=== PATIENT | male | born 1985 | race African-American/Black ===

== ENCOUNTER 2018-10-28 10:05 | Inpatient (IN) | payer MEDICAID ==
[2018-10-28] MEDS ORDERED: Acetaminophen TAB* 325 MG PO PRN (13:16)
[2018-10-28] MEDS ORDERED: Senna TAB PO PRN (13:16)
[2018-10-28] MEDS ORDERED: oxyCODONE TAB* 5 MG TAB PO PRN (13:29)
[2018-10-28] MEDS ORDERED: Magnesium Hydroxide LIQ* 30 ML UDC PO PRN (13:35)
[2018-10-28] MEDS: oxyCODONE/Acetamin 5/325 MG* TAB PO PRN (14:20)
[2018-10-28] MEDS: Gabapentin CAP(*) 300 MG PO SCH ×2 (14:20→21:02)
[2018-10-28] MEDS: Clindamycin CAP* 150 MG PO SCH ×2 (14:20→22:12)
[2018-10-28] MEDS: oxyCODONE SR TAB(*) 10 MG TAB.SR PO SCH (17:57)
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
[2018-10-28] MEDS: Docusate CAP* 100 MG PO SCH (21:03)
[2018-10-28] MEDS: Enoxaparin(*) 30 MG/0.3 ML SYR SUBCUT SCH (21:03)
[2018-10-28] MEDS: Melatonin 3 MG TAB PO PRN (22:12)
[2018-10-29] MEDS: Clindamycin CAP* 150 MG PO SCH ×3 (04:56→21:50)
[2018-10-29] MEDS: oxyCODONE SR TAB(*) 10 MG TAB.SR PO SCH ×2 (04:56→17:24)
[2018-10-29 05:14] LABS: ABS Eosinophils 0.3 10^3/ul (0-0.6); ABS Lymphocytes 1.5 10^3/ul (1.0-4.8); ABS Monocytes 0.6 10^3/ul (0-0.8); ABS Neutrophils 5.8 10^3/ul (1.5-7.7); Eosinophil % 3.6 %; Hematocrit 36 % (42-52); Hemoglobin 11.5 g/dL (14.0-18.0); Lymphocyte % 18.6 %; Mean Corpuscular HGB Conc 33 g/dL (31-36); Mean Corpuscular Hemoglobin 26 pg (27-31); Mean Corpuscular Volume 79 fL (80-94); Mean Platelet Volume 7.5 fL (7.4-10.4); Platelet Count 255 10^3/uL (150-450); Red Cell Distribution Width 13 % (10.5-15); White Blood Count 8.3 10^3/uL (3.5-10.8)
[2018-10-29 05:20] LABS: Albumin 3.8 g/dL (3.2-5.2); Albumin/Globulin Ratio 1.3 (1-3); Calcium 9.4 mg/dL (8.6-10.3); EGFR Non-African American 121.5 (>60); Globulin 2.9 g/dL (2-4); Total Bilirubin 0.8 mg/dL (0.2-1.0); Total Protein 6.7 g/dL (6.4-8.9)
[2018-10-29] MEDS: oxyCODONE/Acetamin 5/325 MG* TAB PO PRN ×2 (07:47→21:52)
[2018-10-29] MEDS: Docusate CAP* 100 MG PO SCH ×2 (07:48→21:48)
[2018-10-29] MEDS: Gabapentin CAP(*) 300 MG PO SCH ×3 (07:48→21:50)
[2018-10-29] MEDS: Enoxaparin(*) 30 MG/0.3 ML SYR SUBCUT SCH ×2 (07:48→21:49)
[2018-10-29 09:00] LABS: Troponin I 0.01 ng/mL (<0.04)
[2018-10-29] MEDS ORDERED: OXYMETAZOLINE 0.05% BOTH NARES SCH (09:00)
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
[2018-10-29] MEDS: Bacitracin OINTMENT* 0.5% 0.5 oz TUBE TOPICAL SCH (09:32)
[2018-10-29] MEDS: Oxymetazoline 0.05% NASAL SPR* 15 ML BTL BOTH NARES SCH ×3 (09:35→21:53)
[2018-10-29] MEDS ORDERED: Iohexol 350* (CONTRAST) 500 ML MDV IV ONE (09:53)
[2018-10-29] MEDS ORDERED: NS 0.9% 250 ML* 250 ML IV ONE (12:04)
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
--- NOTE | 2018-10-29 12:33 | PMRUTEAM ---
PMRU: Team Meeting Current Status: Nursing: Current Status Skin Deviations [lindsey arms, Abrasion face] Skin Deviations [Left Ankle] Incision Skin Deviation Description [ healing, scabbed lindsey arms, face] Skin Deviation Description [ oralia wrapped splint CDI Left Ankle] Physical Therapy: Current Status Bed Mobility Assistance Independent with trapeze Transfer Mobility Assistance Min - mod assist with slide board Ambulation Assistance Not tested Occupational Therapy: Current Status Upper Body Dressing Supervision Lower Body Dressing Max Asst Bathing Min Assist Toileting Mod Assist,Max Asst Shower Transfer Contact Guard Assist Eating Independent Rec Therapy: Current Status Summary of Assessment and Pt. was open to conversation - tired, but polite Clinical Impression and engaged, making jokes throughout. Pt. was able to identify numerous leisure interests and requested coloring designs and/or word scrambles for use during free time. Pt. was excited about recreation therapy sessions, stating that [facility] is "way more fun than the last place I was at". Pt. also expressed interest in pet therapy when his nose is in better shape (pt. has dander allergies and does not want to risk the possibility of sneezing). Treatment Goals Pt. will engage in leisure while on the unit. Treatment Plan Provide recreation services. Social Work: Current Status Discharge Plan return home with home care svs and family support Potential for Family Training pt's fiance is attentive and involved Anticipated Discharge Home Destination Discharge With home care svs and family support Goals: PHYSICAL THERAPY: INITIAL GOALS Independent bed mobility, transfers with slide board and manual wheelchair propulsion 150ft. Occupational Therapy: Initial Goals Goals to be Completed in (Days 7-10 ) Upper Body Bathing Routine Independent Lower Body Bathing Routine Modified Independent with Upper Body Dressing Routine Independent Lower Body Dressing Routine Modified Independent with Toilet Hygeine and Clothing Modified Independent with Management Routine Toilet Transfer Routine Modified Independent with Tub Transfer Routine Modified Independent with Tub Trasnfer Assistive Devices tub transfer bench Functional Transfers for ADL Modified Independent with Functional Transfers for ADl transfer board Assistive Devices Grooming Routine Modified Independent with Feeding Routine Independent Social Work: Goals Discharge Plan return home with home care svs and family support Potential for Family Training pt's fiance is attentive and involved Anticipated Discharge Home Destination Discharge With home care svs and family support Care Plan: Care Plan DVT Prophylaxis- Improve/Maintain Start: 10/28/18 19:48 Freq: QSHIFT Status: Active Target: Protocol: Activity Type Activity Date Activity User E-Sign Co-Sign Detail Recorded Client Recorded Date Recorded By Document 10/29/18 08:00 [id number] 10/29/18 08:10 [id number] 10/29/18 08:00 [facility] Outcome: DVT Prophylaxis Outcome/Goals Remains Free of DVT Progression Toward Outcome/Goals Progressing Education-Improve/Maintain Start: 10/28/18 19:48 Freq: QSHIFT Status: Active Target: Protocol: Activity Type Activity Date Activity User E-Sign Co-Sign Detail Recorded Client Recorded Date Recorded By Document 10/29/18 08:00 [id number] 10/29/18 08:10 [id number] 10/29/18 08:00 PMRU Outcome: Education Outcome/Goals Demonstrate/ Verbalize Understanding of Written Discharge Instructions Encourage Questions Progression Toward Outcome/Goals Progressing Pain/Comfort- Improve/Maintain Start: 10/28/18 19:48 Freq: QSHIFT Status: Active Target: Protocol: Activity Type Activity Date Activity User E-Sign Co-Sign Detail Recorded Client Recorded Date Recorded By Document 10/29/18 08:00 [id number] 10/29/18 08:10 [id number] 10/29/18 08:00 PMRU Outcome: Pain/Comfort Outcome/Goals Demonstrates Knowledge and Use of Available Comfort Measures Achieves Acceptable Comfort/Pain Level as Determined by Patient/Condit Maintain Comfort Level Allowing Patient to Fully Participate in Rehab Progression Toward Outcome/Goals Progressing Respiratory - Improve/Maintain Start: 10/28/18 19:48 Freq: QSHIFT Status: Active Target: Protocol: Activity Type Activity Date Activity User E-Sign Co-Sign Detail Recorded Client Recorded Date Recorded By Document 10/29/18 08:00 [id number] 10/29/18 08:10 [id number] 10/29/18 08:00 PM[facility] Outcome: Respiratory Does Patient Have a Trach No Outcome/Goals Maintain/ Improve Baseline Respiratory Status Maintain/ Improve Activity Tolerance Prevent Pneumonia/ Atelectasis Progression Toward Outcome/Goals Progressing Safety- Improve/Maintain Start: 10/28/18 19:48 Freq: QSHIFT Status: Active Target: Protocol: Activity Type Activity Date Activity User E-Sign Co-Sign Detail Recorded Client Recorded Date Recorded By Document 10/29/18 08:00 [id number] 10/29/18 08:10 [id number] 10/29/18 08:00 PMRU Outcome: Safety Outcome/Goals Remain Free of Injury or Harm Cooperates with Safety Measures for Least Restrictive Environment Prevent Falls/ Injury Progression Toward Outcome/Goals Progressing Medicine Note: Length of Stay: [11 days] Anticipated Discharge Destination: Home Tentative Discharge Date: [11/09/18] Discharged to: [home with support]
[2018-10-29] MEDS: Methocarbamol TAB* 500 MG PO PRN (17:23)
[2018-10-29] MEDS: NS 0.9% 1000 ML** 1,000 ML IV SCH (20:07)
[2018-10-30] MEDS: Melatonin 3 MG TAB PO PRN ×2 (00:02→21:05)
[2018-10-30] MEDS: oxyCODONE SR TAB(*) 10 MG TAB.SR PO SCH ×2 (06:04→18:36)
[2018-10-30] MEDS: Docusate CAP* 100 MG PO SCH ×2 (09:37→21:00)
[2018-10-30] MEDS: Gabapentin CAP(*) 300 MG PO SCH ×4 (09:38→21:05)
[2018-10-30] MEDS: oxyCODONE/Acetamin 5/325 MG* TAB PO PRN ×3 (09:39→21:10)
[2018-10-30] MEDS: Enoxaparin(*) 30 MG/0.3 ML SYR SUBCUT SCH ×2 (09:40→21:08)
[2018-10-30] MEDS: Oxymetazoline 0.05% NASAL SPR* 15 ML BTL BOTH NARES SCH ×3 (09:43→21:09)
[2018-10-30] MEDS: Bacitracin OINTMENT* 0.5% 0.5 oz TUBE TOPICAL SCH (09:44)
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
[2018-10-30] MEDS: NS 0.9% 1000 ML** 1,000 ML IV SCH ×2 (12:33)
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
[2018-10-31] MEDS: oxyCODONE SR TAB(*) 10 MG TAB.SR PO SCH ×2 (05:53→19:16)
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
[2018-10-31] MEDS ORDERED: Iohexol 350* (CONTRAST) 500 ML MDV IV ONE ×2 (08:31→08:59)
[2018-10-31] MEDS: Gabapentin CAP(*) 300 MG PO SCH ×3 (08:56→21:21)
[2018-10-31] MEDS: Enoxaparin(*) 30 MG/0.3 ML SYR SUBCUT SCH ×2 (08:57→21:18)
[2018-10-31] MEDS: Docusate CAP* 100 MG PO SCH ×2 (09:04→21:35)
[2018-10-31] MEDS: Oxymetazoline 0.05% NASAL SPR* 15 ML BTL BOTH NARES SCH ×3 (09:05→21:23)
[2018-10-31] MEDS: Bacitracin OINTMENT* 0.5% 0.5 oz TUBE TOPICAL SCH (09:05)
[2018-10-31] MEDS: oxyCODONE/Acetamin 5/325 MG* TAB PO PRN ×2 (14:17→21:20)
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
[2018-10-31] MEDS: Melatonin 3 MG TAB PO PRN (21:20)
[2018-11-01] MEDS: oxyCODONE SR TAB(*) 10 MG TAB.SR PO SCH ×2 (04:55→17:57)
[2018-11-01] MEDS: Docusate CAP* 100 MG PO SCH ×2 (08:37→21:47)
[2018-11-01] MEDS: Gabapentin CAP(*) 300 MG PO SCH ×3 (08:39→21:48)
[2018-11-01] MEDS: Enoxaparin(*) 30 MG/0.3 ML SYR SUBCUT SCH ×2 (08:40→21:49)
[2018-11-01] MEDS: oxyCODONE/Acetamin 5/325 MG* TAB PO PRN ×3 (08:40→21:43)
[2018-11-01] MEDS: Oxymetazoline 0.05% NASAL SPR* 15 ML BTL BOTH NARES SCH ×3 (08:42→21:44)
[2018-11-01] MEDS: Bacitracin OINTMENT* 0.5% 0.5 oz TUBE TOPICAL SCH (08:43)
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
[2018-11-01] MEDS: Melatonin 3 MG TAB PO PRN (21:43)
[2018-11-02] MEDS: oxyCODONE SR TAB(*) 10 MG TAB.SR PO SCH ×2 (06:29→18:25)
[2018-11-02] MEDS: Bacitracin OINTMENT* 0.5% 0.5 oz TUBE TOPICAL SCH (08:18)
[2018-11-02] MEDS: Docusate CAP* 100 MG PO SCH ×2 (08:19→21:19)
[2018-11-02] MEDS: Enoxaparin(*) 30 MG/0.3 ML SYR SUBCUT SCH ×2 (08:19→21:19)
[2018-11-02] MEDS: Gabapentin CAP(*) 300 MG PO SCH ×3 (08:21→21:19)
[2018-11-02] MEDS: Oxymetazoline 0.05% NASAL SPR* 15 ML BTL BOTH NARES SCH ×3 (08:25→20:56)
[2018-11-02] MEDS: oxyCODONE/Acetamin 5/325 MG* TAB PO PRN ×2 (08:26→20:53)
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
[2018-11-02] MEDS: Melatonin 3 MG TAB PO PRN (20:54)
[2018-11-02] MEDS: Methocarbamol TAB* 500 MG PO PRN (21:06)
[2018-11-03] MEDS: oxyCODONE SR TAB(*) 10 MG TAB.SR PO SCH ×2 (06:08→16:58)
[2018-11-03] MEDS: Enoxaparin(*) 30 MG/0.3 ML SYR SUBCUT SCH ×2 (09:16→20:26)
[2018-11-03] MEDS: Bacitracin OINTMENT* 0.5% 0.5 oz TUBE TOPICAL SCH (09:16)
[2018-11-03] MEDS: Gabapentin CAP(*) 300 MG PO SCH ×3 (09:17→20:29)
[2018-11-03] MEDS: Oxymetazoline 0.05% NASAL SPR* 15 ML BTL BOTH NARES SCH ×3 (09:18→20:28)
[2018-11-03] MEDS: Docusate CAP* 100 MG PO SCH ×2 (09:18→20:29)
[2018-11-03] MEDS: oxyCODONE/Acetamin 5/325 MG* TAB PO PRN ×3 (09:22→20:29)
[2018-11-03] MEDS: Methocarbamol TAB* 500 MG PO PRN ×2 (11:08→16:59)
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
[2018-11-04] MEDS: oxyCODONE SR TAB(*) 10 MG TAB.SR PO SCH ×2 (05:56→18:03)
[2018-11-04] MEDS: Gabapentin CAP(*) 300 MG PO SCH ×3 (09:32→20:42)
[2018-11-04] MEDS: Enoxaparin(*) 30 MG/0.3 ML SYR SUBCUT SCH ×2 (09:32→20:50)
[2018-11-04] MEDS: Bacitracin OINTMENT* 0.5% 0.5 oz TUBE TOPICAL SCH (09:33)
[2018-11-04] MEDS: oxyCODONE/Acetamin 5/325 MG* TAB PO PRN ×3 (09:36→20:43)
[2018-11-04] MEDS: Docusate CAP* 100 MG PO SCH ×2 (09:37→20:50)
[2018-11-04] MEDS: Methocarbamol TAB* 500 MG PO PRN (15:37)
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
[2018-11-05] MEDS: oxyCODONE SR TAB(*) 10 MG TAB.SR PO SCH ×2 (05:15→18:32)
[2018-11-05 05:27] LABS: ABS Eosinophils 0.3 10^3/ul (0-0.6); ABS Lymphocytes 1.7 10^3/ul (1.0-4.8); ABS Monocytes 0.5 10^3/ul (0-0.8); Eosinophil % 4.8 %; Hematocrit 34 % (42-52); Hemoglobin 11.2 g/dL (14.0-18.0); Lymphocyte % 25.4 %; Mean Corpuscular HGB Conc 33 g/dL (31-36); Mean Corpuscular Hemoglobin 26 pg (27-31); Mean Corpuscular Volume 80 fL (80-94); Mean Platelet Volume 6.9 fL (7.4-10.4); Nucleated Red Blood Cells % 0.1; Platelet Count 521 10^3/uL (150-450); Red Blood Count 4.32 10^6 /uL (4.18-5.48); Red Cell Distribution Width 14 % (10.5-15); White Blood Count 6.5 10^3/uL (3.5-10.8)
[2018-11-05 05:42] LABS: Albumin 4.1 g/dL (3.2-5.2); Albumin/Globulin Ratio 1.5 (1-3); BUN/Creatinine Ratio 24.1 (8-20); Calcium 9.3 mg/dL (8.6-10.3); EGFR African American 130.8 (>60); EGFR Non-African American 108.1 (>60); Globulin 2.8 g/dL (2-4); Potassium 4.3 mmol/L (3.5-5.0); Total Bilirubin 0.4 mg/dL (0.2-1.0); Total Protein 6.9 g/dL (6.4-8.9)
[2018-11-05] MEDS: Enoxaparin(*) 30 MG/0.3 ML SYR SUBCUT SCH ×2 (08:10→21:13)
[2018-11-05] MEDS: Bacitracin OINTMENT* 0.5% 0.5 oz TUBE TOPICAL SCH (08:10)
[2018-11-05] MEDS: Gabapentin CAP(*) 300 MG PO SCH ×3 (08:12→21:13)
[2018-11-05] MEDS: oxyCODONE/Acetamin 5/325 MG* TAB PO PRN ×2 (08:13→21:18)
[2018-11-05] MEDS: Docusate CAP* 100 MG PO SCH ×2 (08:14→21:11)
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
[2018-11-05] MEDS: Methocarbamol TAB* 500 MG PO PRN (18:31)
[2018-11-06] MEDS: oxyCODONE SR TAB(*) 10 MG TAB.SR PO SCH ×3 (06:07→18:40)
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
[2018-11-06] MEDS: Enoxaparin(*) 30 MG/0.3 ML SYR SUBCUT SCH ×2 (08:55→21:56)
[2018-11-06] MEDS: Gabapentin CAP(*) 300 MG PO SCH ×3 (08:56→21:55)
[2018-11-06] MEDS: Docusate CAP* 100 MG PO SCH ×2 (08:57→21:46)
[2018-11-06] MEDS: oxyCODONE/Acetamin 5/325 MG* TAB PO PRN ×3 (08:57→21:56)
[2018-11-06] MEDS: Bacitracin OINTMENT* 0.5% 0.5 oz TUBE TOPICAL SCH (09:05)
[2018-11-07] MEDS: oxyCODONE SR TAB(*) 10 MG TAB.SR PO SCH ×2 (05:42→17:54)
[2018-11-07] MEDS: Gabapentin CAP(*) 300 MG PO SCH ×3 (09:13→21:54)
[2018-11-07] MEDS: oxyCODONE/Acetamin 5/325 MG* TAB PO PRN ×3 (09:15→21:54)
[2018-11-07] MEDS: Enoxaparin(*) 30 MG/0.3 ML SYR SUBCUT SCH ×2 (09:16→21:53)
[2018-11-07] MEDS: Bacitracin OINTMENT* 0.5% 0.5 oz TUBE TOPICAL SCH (09:21)
[2018-11-07] MEDS: Docusate CAP* 100 MG PO SCH ×2 (09:23→21:58)
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
[2018-11-08] MEDS: oxyCODONE/Acetamin 5/325 MG* TAB PO PRN ×3 (04:20→14:05)
[2018-11-08] MEDS: Methocarbamol TAB* 500 MG PO PRN (05:10)
[2018-11-08] MEDS: oxyCODONE SR TAB(*) 10 MG TAB.SR PO SCH ×2 (05:38→17:50)
[2018-11-08] MEDS: Docusate CAP* 100 MG PO SCH ×2 (10:11→21:09)
[2018-11-08] MEDS: Enoxaparin(*) 30 MG/0.3 ML SYR SUBCUT SCH ×2 (10:15→23:09)
[2018-11-08] MEDS: Gabapentin CAP(*) 300 MG PO SCH ×3 (10:15→23:08)
[2018-11-08] MEDS: Bacitracin OINTMENT* 0.5% 0.5 oz TUBE TOPICAL SCH (10:38)
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
[2018-11-09] MEDS: oxyCODONE/Acetamin 5/325 MG* TAB PO PRN ×3 (01:00→15:47)
[2018-11-09] MEDS: Methocarbamol TAB* 500 MG PO PRN (01:02)
[2018-11-09] MEDS: oxyCODONE SR TAB(*) 10 MG TAB.SR PO SCH ×2 (05:55→17:52)
[2018-11-09] MEDS: Bacitracin OINTMENT* 0.5% 0.5 oz TUBE TOPICAL SCH (09:34)
[2018-11-09] MEDS: Gabapentin CAP(*) 300 MG PO SCH ×3 (09:35→21:01)
[2018-11-09] MEDS: Enoxaparin(*) 30 MG/0.3 ML SYR SUBCUT SCH ×2 (09:35→21:03)
[2018-11-09] MEDS: Docusate CAP* 100 MG PO SCH ×2 (09:35→21:07)
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
[2018-11-10] MEDS: oxyCODONE SR TAB(*) 10 MG TAB.SR PO SCH ×2 (06:24→19:14)
[2018-11-10] MEDS: Methocarbamol TAB* 500 MG PO PRN (06:26)
[2018-11-10] MEDS: Bacitracin OINTMENT* 0.5% 0.5 oz TUBE TOPICAL SCH (08:19)
[2018-11-10] MEDS: Docusate CAP* 100 MG PO SCH (08:19)
[2018-11-10] MEDS: Gabapentin CAP(*) 300 MG PO SCH ×2 (08:19→14:27)
[2018-11-10] MEDS: Enoxaparin(*) 30 MG/0.3 ML SYR SUBCUT SCH (08:19)
[2018-11-10] MEDS: oxyCODONE/Acetamin 5/325 MG* TAB PO PRN ×2 (10:21→16:16)
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
[2018-11-10 17:17] VITALS: BP 129/86
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
== END 2018-11-10 19:51 | disposition swing bed (61) | DRG 860 ==
LOC: PMRU 12:28
PROVIDERS: ADMIT Physical Medicine & Rehabilitation; ATTEND Physical Medicine & Rehabilitation
PROC: F07Z5ZZ Bed Mobility Treatment (ICD-10-PCS; principal; 2018-10-28)
PROC: F07Z8ZZ Transfer Training Treatment (ICD-10-PCS; 2018-10-28)
PROC: F07Z4ZZ Wheelchair Mobility Treatment (ICD-10-PCS; 2018-10-28)
PROC: F08Z0ZZ Bathing/Showering Techniques Treatment (ICD-10-PCS; 2018-10-28)
PROC: F08Z1ZZ Dressing Techniques Treatment (ICD-10-PCS; 2018-10-28)
PROC: F08Z3ZZ Feeding/Eating Treatment (ICD-10-PCS; 2018-10-28)
DX: S82.842D Displaced bimalleolar fracture of left lower leg, subsequent encounter for closed fracture with routine healing (principal); S02.2XXD Fracture of nasal bones, subsequent encounter for fracture with routine healing; V49.88XD Car occupant (driver) (passenger) injured in other specified transport accidents, subsequent encounter; S73.004D Unspecified dislocation of right hip, subsequent encounter; F17.210 Nicotine dependence, cigarettes, uncomplicated; R00.0 Tachycardia, unspecified; F32.9 Major depressive disorder, single episode, unspecified; F10.10 Alcohol abuse, uncomplicated; Z88.0 Allergy status to penicillin
CPT/HCPCS: 36415; 80053; 84484; 85025; 85379; 93005; A9270-GY; J1650; Q9967

== ENCOUNTER 2018-11-10 18:08 | Inpatient (IN) | payer MEDICAID ==
[2018-11-10] MEDS ORDERED: Senna TAB PO PRN (20:18)
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
[2018-11-10] MEDS: Gabapentin CAP(*) 300 MG PO SCH (21:55)
[2018-11-10] MEDS: Enoxaparin(*) 40 MG/0.4 ML SYR SUBCUT SCH (22:24)
[2018-11-10] MEDS: oxyCODONE/Acetamin 5/325 MG* TAB PO PRN (22:24)
[2018-11-11] MEDS: Gabapentin CAP(*) 300 MG PO SCH ×3 (07:33→21:38)
[2018-11-11] MEDS: oxyCODONE/Acetamin 5/325 MG* TAB PO PRN ×2 (10:59→19:45)
[2018-11-11] MEDS ORDERED: Morphine INJ* 2 MG/ML 1 ML SYRINGE (TWO MG - NEW SYRINGE VERSION) ONE (11:45)
[2018-11-11] MEDS ORDERED: Morphine INJ* 2 MG/ML 1 ML SYRINGE (TWO MG - NEW SYRINGE VERSION) IV ONE ×2 (12:00→13:00)
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
[2018-11-11] MEDS: Enoxaparin(*) 40 MG/0.4 ML SYR SUBCUT SCH (21:38)
[2018-11-12] MEDS: oxyCODONE/Acetamin 5/325 MG* TAB PO PRN ×3 (06:57→21:54)
[2018-11-12] MEDS: Gabapentin CAP(*) 300 MG PO SCH ×3 (10:00→21:29)
[2018-11-12 14:53] LABS: Hematocrit 37 % (42-52); Hemoglobin 11.8 g/dL (14.0-18.0)
[2018-11-12 15:08] LABS: EGFR African American 125.5 (>60); EGFR Non-African American 103.7 (>60)
[2018-11-12] MEDS: Enoxaparin(*) 40 MG/0.4 ML SYR SUBCUT SCH (21:30)
[2018-11-12] MEDS: Methocarbamol TAB* 500 MG PO PRN (21:54)
[2018-11-13] MEDS: oxyCODONE/Acetamin 5/325 MG* TAB PO PRN ×3 (08:12→20:07)
[2018-11-13] MEDS: Gabapentin CAP(*) 300 MG PO SCH ×3 (08:13→20:07)
[2018-11-13 16:50] LABS: Mean Platelet Volume 7.7 fL (7.4-10.4); Platelet Count 383 10^3/uL (150-450)
[2018-11-13] MEDS: Methocarbamol TAB* 500 MG PO PRN (20:07)
[2018-11-13] MEDS: Enoxaparin(*) 40 MG/0.4 ML SYR SUBCUT SCH (20:08)
[2018-11-14] MEDS: Gabapentin CAP(*) 300 MG PO SCH ×3 (07:54→21:10)
[2018-11-14] MEDS: oxyCODONE/Acetamin 5/325 MG* TAB PO PRN ×3 (07:55→23:17)
[2018-11-14] MEDS: Methocarbamol TAB* 500 MG PO PRN (21:12)
[2018-11-14] MEDS: Enoxaparin(*) 40 MG/0.4 ML SYR SUBCUT SCH (21:12)
[2018-11-15] MEDS: Gabapentin CAP(*) 300 MG PO SCH ×3 (08:09→21:05)
[2018-11-15] MEDS: oxyCODONE/Acetamin 5/325 MG* TAB PO PRN ×3 (08:09→21:06)
[2018-11-15] MEDS: Methocarbamol TAB* 500 MG PO PRN (21:05)
[2018-11-15] MEDS: Enoxaparin(*) 40 MG/0.4 ML SYR SUBCUT SCH (21:06)
[2018-11-15] MEDS: Melatonin 3 MG TAB PO PRN (22:30)
[2018-11-16] MEDS: Gabapentin CAP(*) 300 MG PO SCH ×3 (08:25→20:10)
[2018-11-16] MEDS: oxyCODONE/Acetamin 5/325 MG* TAB PO PRN ×3 (08:25→23:20)
[2018-11-16] MEDS: Ibuprofen TAB* 600 MG PO PRN ×2 (08:25→18:24)
[2018-11-16] MEDS: Acetaminophen TAB* 325 MG PO PRN (20:09)
[2018-11-16] MEDS: Enoxaparin(*) 40 MG/0.4 ML SYR SUBCUT SCH (20:10)
[2018-11-16] MEDS: Melatonin 3 MG TAB PO PRN (23:20)
[2018-11-17] MEDS: oxyCODONE/Acetamin 5/325 MG* TAB PO PRN ×3 (09:07→20:15)
[2018-11-17] MEDS: Gabapentin CAP(*) 300 MG PO SCH ×3 (09:07→20:14)
[2018-11-17] MEDS: Ibuprofen TAB* 600 MG PO PRN ×2 (09:07→20:15)
--- NOTE | 2018-11-17 12:42 | PN ---
Hospitalist Progress Note Date of Service: 11/17/18
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
[2018-11-17] MEDS: Acetaminophen TAB* 325 MG PO PRN (15:39)
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
[2018-11-17] MEDS: Enoxaparin(*) 40 MG/0.4 ML SYR SUBCUT SCH (20:15)
[2018-11-17] MEDS: Melatonin 3 MG TAB PO PRN (23:08)
[2018-11-17] MEDS: Methocarbamol TAB* 500 MG PO PRN (23:08)
[2018-11-18] MEDS ORDERED: Al Hydrox/Mg Hydrox/Simet LIQ* 30 ML UDC PO PRN (08:46)
[2018-11-18] MEDS: Gabapentin CAP(*) 300 MG PO SCH ×3 (09:06→21:00)
[2018-11-18] MEDS: oxyCODONE/Acetamin 5/325 MG* TAB PO PRN ×2 (09:06→17:18)
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
[2018-11-18] MEDS: Enoxaparin(*) 40 MG/0.4 ML SYR SUBCUT SCH (20:59)
[2018-11-18] MEDS: Acetaminophen TAB* 325 MG PO PRN (21:00)
[2018-11-19] MEDS: Melatonin 3 MG TAB PO PRN (01:36)
[2018-11-19] MEDS: oxyCODONE/Acetamin 5/325 MG* TAB PO PRN ×2 (09:29→14:47)
[2018-11-19] MEDS: Gabapentin CAP(*) 300 MG PO SCH ×3 (09:30→21:04)
[2018-11-19] MEDS: Ibuprofen TAB* 600 MG PO PRN ×2 (09:31→14:46)
[2018-11-19] MEDS: Acetaminophen TAB* 325 MG PO PRN ×2 (17:06→21:05)
[2018-11-19] MEDS: Enoxaparin(*) 40 MG/0.4 ML SYR SUBCUT SCH (21:05)
[2018-11-20] MEDS: oxyCODONE/Acetamin 5/325 MG* TAB PO PRN ×2 (09:43→20:56)
[2018-11-20] MEDS: Gabapentin CAP(*) 300 MG PO SCH ×3 (09:44→20:56)
[2018-11-20] MEDS: Ibuprofen TAB* 600 MG PO PRN (12:08)
[2018-11-20 14:47] LABS: EGFR African American 134.5 (>60); EGFR Non-African American 111.1 (>60)
[2018-11-20 15:13] LABS: Hematocrit 36 % (42-52); Hemoglobin 11.4 g/dL (14.0-18.0); Mean Platelet Volume 6.8 fL (7.4-10.4); Platelet Count 271 10^3/uL (150-450)
[2018-11-20] MEDS: Melatonin 3 MG TAB PO PRN (22:21)
[2018-11-20] MEDS: Enoxaparin(*) 40 MG/0.4 ML SYR SUBCUT SCH (22:21)
[2018-11-21] MEDS: oxyCODONE/Acetamin 5/325 MG* TAB PO PRN ×2 (10:08→15:27)
[2018-11-21] MEDS: Gabapentin CAP(*) 300 MG PO SCH ×3 (10:09→21:10)
[2018-11-21] MEDS: Acetaminophen TAB* 325 MG PO PRN (21:10)
[2018-11-21] MEDS: Enoxaparin(*) 40 MG/0.4 ML SYR SUBCUT SCH (21:11)
[2018-11-21] MEDS: Melatonin 3 MG TAB PO PRN (22:57)
[2018-11-22] MEDS: oxyCODONE/Acetamin 5/325 MG* TAB PO PRN ×2 (09:12→23:27)
[2018-11-22] MEDS: Gabapentin CAP(*) 300 MG PO SCH ×3 (09:12→20:49)
[2018-11-22] MEDS: Enoxaparin(*) 40 MG/0.4 ML SYR SUBCUT SCH (20:49)
[2018-11-22] MEDS: Melatonin 3 MG TAB PO PRN (23:27)
[2018-11-23 08:28] VITALS: BP 114/68
[2018-11-23] MEDS: Gabapentin CAP(*) 300 MG PO SCH ×3 (08:30→21:20)
[2018-11-23] MEDS: Acetaminophen TAB* 325 MG PO PRN (08:37)
[2018-11-23] MEDS: oxyCODONE/Acetamin 5/325 MG* TAB PO PRN ×2 (14:04→21:20)
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
[2018-11-23] MEDS: Enoxaparin(*) 40 MG/0.4 ML SYR SUBCUT SCH (21:21)
[2018-11-24] MEDS: oxyCODONE/Acetamin 5/325 MG* TAB PO PRN (08:24)
[2018-11-24] MEDS: Gabapentin CAP(*) 300 MG PO SCH (08:24)
[2018-11-24] MEDS ORDERED: Lorazepam PYXIS KEY ONE (09:03)
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
== END 2018-11-24 12:45 | DRG 341 ==
LOC: MED 19:51
PROVIDERS: ADMIT Internal Medicine; ATTEND Internal Medicine
DX: S73.014A Posterior dislocation of right hip, initial encounter (principal); S82.892A Other fracture of left lower leg, initial encounter for closed fracture; S02.2XXA Fracture of nasal bones, initial encounter for closed fracture; F17.210 Nicotine dependence, cigarettes, uncomplicated; Z80.1 Family history of malignant neoplasm of trachea, bronchus and lung; Z88.0 Allergy status to penicillin; Z72.89 Other problems related to lifestyle; V89.2XXA Person injured in unspecified motor-vehicle accident, traffic, initial encounter; Y92.89 Other specified places as the place of occurrence of the external cause
CPT/HCPCS: 36415; 82565; 84520; 85014; 85018; 85049; A9270-GY; J1650; J2270